=== PATIENT | male | born 1990 | race African-American/Black ===

== ENCOUNTER 2024-10-29 06:22 | Emergency (ER) | payer SELFPAY ==
[~2024-10-29] VITALS: Ht 172.7 cm; Wt 126.7 kg
[2024-10-29 06:35] VITALS: O2SAT 99
[2024-10-29] MEDS: KETOROLAC 30MG/ML VIAL IM STA (07:40)
[2024-10-29] MEDS ORDERED: DEXAMETHASONE 0.5MG/5ML ORAL SYR PO ONE (07:45)
[2024-10-29] MEDS ORDERED: DEXAMETHASONE 6MG TABLET PO SCH (08:00)
[2024-10-29] MEDS: DEXAMETHASONE 4MG TABLET PO NR (08:26)
[2024-10-29] MEDS ORDERED: OLOP2.5D12 EACHEYE (08:32)
[2024-10-29 08:44] VITALS: BP 127/84; PULSE 71; RESP 18; TEMP 37.1; O2SAT 95
[2024-10-29 08:57] LABS: INFLUENZA TYPE A Presumptive Negative (Pres. Neg.)
[2024-10-29 08:58] LABS: INFLUENZA TYPE B Presumptive Negative (Pres. Neg.)
== END 2024-10-29 09:30 | disposition home or self-care (01) ==
LOC: ER 06:22
DX: B30.8 Other viral conjunctivitis (principal); B34.9 Viral infection, unspecified; Z88.0 Allergy status to penicillin; Z20.822 Contact with and (suspected) exposure to COVID-19
CPT/HCPCS: 99284; 71045; 87426; 87804 ×2; 72040; 96372; J1885; J8540